=== PATIENT | male | born 1990 | race Caucasian/White ===

== ENCOUNTER 2022-09-04 01:33 | Emergency (ER) | payer BC, OTHER ==
[2022-09-04] MEDS ORDERED: Docusate Sodium 100 MG/10 ML UDCUP FS SCH (03:00)
== END 2022-09-04 03:35 | disposition home or self-care (01) ==
LOC: CSHERS 01:33
DX: H61.21 Impacted cerumen, right ear (principal); H60.91 Unspecified otitis externa, right ear
CPT/HCPCS: 99282